=== PATIENT | female | born 1995 | race Caucasian/White ===

== ENCOUNTER 2017-06-24 18:28 | Emergency (ER) | payer OTHER ==
[~2017-06-24] VITALS: Ht 162.6 cm; Wt 66.0 kg
[2017-06-24 18:29] VITALS: TEMP 37; Ht 162.6 cm; Wt 66.0 kg
[2017-06-24] MEDS ORDERED: BCPILLS PO (19:36)
[2017-06-24 19:44] LABS: HEMATOCRIT 38.2 % (37-47); MEAN CELL VOLUME 86.8 fL (80-100); MEAN CORPUSCULAR HEMOGLOBIN 28.4 pg (25-34); MEAN CORPUSCULAR HGB CONC 32.7 g/dl (32-36); MEAN PLATELET VOLUME 9.9 fL (7.4-10.4); PLATELET COUNT 292 K/uL (130-400); WHITE BLOOD COUNT 7.61 K/uL (4.8-10.8)
[2017-06-24 20:00] LABS: POTASSIUM 3.5 mmol/L (3.5-5.1)
[2017-06-24 20:32] LABS: LYME DISEASE AB IGG NEG (NEG); LYME DISEASE AB IGM NEG (NEG)
--- NOTE | 2017-06-24 20:49 | EMERGENCY ROOM VISIT NOTE ---
ED Visit Note First contact with patient: 18:36 CHIEF COMPLAINT: Bilateral toe numbness and tingling HISTORY OF PRESENT ILLNESS: This 21-year-old female patient presents to the emergency department ambulatory, complaining of paresthesias in both feet. She states night, she was walking around for proximally 2 hours wearing high heels. She states Monday morning, she awoke noticing a tingling on the outside toes of both feet. She states she has been able to feel and move the toes. She states the discomfort feels "like when a body part falls asleep". The patient states the symptoms have been approximately the same since yesterday morning when she awoke and first noticed them. The patient denies any injury, and states she did not fall. There is been no discoloration or pain radiating to the foot. The pain begins at the base of the toes and radiates out towards the tips of the toes. The patient states the pain does seem to me moving from the lateral to the medial aspect. She denies any neurological symptoms, and has taken nothing for the pain. REVIEW OF SYSTEMS: A complete 10 point review of systems was reviewed with the patient with pertinent positives and negatives as per history of present illness. All else were negative. ALLERGIES: None MEDICATIONS: Oral contraceptive pills PMH: None SOCIAL HISTORY: The patient lives locally is a [employer] student. She denies drug, alcohol, tobacco use. PHYSICAL EXAM: Vital Signs: Reviewed Nurse's notes, vital signs stable. GENERAL : This is a 21-year-old white female, in no acute distress, well-developed, well -nourished. MUSCULOSKELATAL: There is no visual deformity of the bilateral feet. There is no erythema or ecchymosis. There is no warmth. There is no tenderness or swelling of any of the toes. There is no tenderness over the lateral or medial malleolus. No tenderness of the tib/fib. The range of motion of the toes is full. There is no tenderness over the plantar fascia. The skin is intact and there are no lacerations or puncture wounds. Dorsalis pedis pulse 2+. Capillary refill less than 2 seconds. EMERGENCY DEPARTMENT COURSE: I examined the patient. I discussed with the patient that I suspect the symptoms are related to wearing high heels and putting excess pressure on the toes, which she does not normally do. The patient states she has worn the same heels prior to this incident, and did not have the same symptoms. I told patient that I do not feel any emergent workup is necessary, and she have something done. I did offer to perform lab work to evaluate paresthesias, and the patient is in agreement with this plan. CBC, electrolyte panel, vitamin B12 level, and Lyme disease test were normal. The only abnormality noted was an elevated vitamin B12 level. The patient states she does sometimes take a multivitamin. I advised her against excess vitamin B12 supplementation, but did inform her that this is not dangerous. Discharge instructions were reviewed and the patient was discharged home in good condition. I attest that I have personally reviewed the patient's current medication list. Patient was found to have normal blood pressure on screening and does not require follow-up. DIFFERENTIAL DIAGNOSIS: Paresthesias, vitamin B12 deficiency, other vitamin deficiency, Lyme disease, anemia, malignancy, and others DIAGNOSIS: Paresthesias of bilateral feet Current/Historical Medications Scheduled Control Pills ( Control Pills), 1 TAB PO DAILY Allergies Coded Allergies: No Known Allergies (Unverified , 06/24/17) Vital Signs Date Time Temp Pulse Resp B/P (MAP) Pulse Ox O2 Delivery O2 Flow Rate FiO2 06/24/17 18:29 37.0 89 16 161/93 98 Room Air Laboratory Results 06/24/17 19:28 06/24/17 19:28 Test 06/24/17 19:28 Red Blood Count 4.40 M/uL (4.2-5.4) Mean Corpuscular Volume 86.8 fL (80-100) Mean Corpuscular Hemoglobin 28.4 pg (25-34) Mean Corpuscular Hemoglobin Concent 32.7 g/dl (32-36) RDW Standard Deviation 41.9 fL (36.4-46.3) RDW Coefficient of Variation 13.0 % (11.5-14.5) Mean Platelet Volume 9.9 fL (7.4-10.4) Anion Gap 7.0 mmol/L (3-11) Vitamin B12 Level 1324 pg/mL (211-911) Lyme Disease IgG Antibody NEG (NEG) Lyme Disease IgM Antibody NEG (NEG) Departure Information Impression Primary Impression: Paresthesia of both feet Dispostion Home / Self-Care Condition GOOD Referrals No Doctor, Assigned (PCP) Forms WORK / SCHOOL INSTRUCTIONS, HOME CARE DOCUMENTATION FORM, IMPORTANT VISIT INFORMATION Patient Instructions My [facility] Additional Instructions Your seen in the emergency department today for numbness and tingling of toes on both of your feet. Labs do not reveal any significant abnormality, however vitamin B12 level was slightly elevated. If you are taking a vitamin B-12 supplement, I would decrease the dose or frequency. As discussed, other electrolytes and lyme disease testing were negative. I suspect the symptoms are related to inflammation and irritation from wearing high heels. I do not recommend you wear high heels. Please wear good supportive shoes such as sneakers for the next 1-2 weeks. You may want to consider some scheduled ibuprofen for the next 3-5 days to help with any inflammation could be worsening the symptoms. Ibuprofen(Motrin, Advil) may be used for fever or pain. Use 600mg every six hours as needed. Take with food. Avoid using more than 2400mg in a 24 hour period. Do not use 2400mg per day for more than three consecutive days without physician direction. Prolonged inappropriate use can lead to stomach upset or ulcers. (AND/OR) Acetaminophen(Tylenol) may be used for fever or pain. Use 1000mg every six hours as needed. Avoid using more than 3000mg in a 24 hour period. Follow-up with [facility] within the next week for further evaluation and management if you're not experiencing improvement in her symptoms. Return to the emergency department for worsening numbness or tingling, discoloration of the toes, decreased ability to move the toes, or other concerning symptoms.
[2017-06-24 21:04] VITALS: BP 132/71; PULSE 62; O2SAT 96
== END 2017-06-24 21:05 | disposition home or self-care (01) ==
LOC: C.EDB 18:29 → C.EDD 21:05
DX: R20.2 Paresthesia of skin (principal)